=== PATIENT | female | born 1955 | race Caucasian/White ===

== ENCOUNTER 2020-01-23 10:36 | Emergency (ER) | payer BC, SELFPAY ==
[2020-01-23] VITALS (40 sets, daily range): BP systolic 95–129; BP diastolic 48–86; PULSE 55–74; RESP 14–26; TEMP 36.6–36.7; O2SAT 94–99
--- NOTE | 2020-01-23 10:30 | RT.EKG_ITS ---
APPROVED REPORT Exam: Resting ECG Patient Location: E HR:71 bpm ECG Measurements Heart Rate 71 AXIS DC 178 P 43 QRSd 93 QRS 25 QT 375 T 48 QTc 407 Conclusion Sinus rhythm...normal P axis, V-rate 60- [address]/T wave findings.
--- NOTE | 2020-01-23 10:54 | W.ED.GENAD ---
Discharge Plan Disposition Patient Disposition: HOME Condition: Stable Discharge Details Chief Complaint: Chest Pain Clinical Impression: Chest pressure Primary Care Provider: Kenji Singh ED Provider: Rick Pizano Home Meds and New Rx's Prescriptions: Continued atorvastatin 80 mg Tablet 80 mg PO QHS RF: 0 clonazepam 1 mg Tablet 1 mg PO BID PRNRF: 0 famotidine [Pepcid] 20 mg Tablet 20 mg PO BID RF: 0 lithium carbonate 300 mg Capsule 600 mg PO BID RF: 0 aspirin 81 mg Tablet,Chewable 81 mg PO DAILY RF: 0 lisinopril 2.5 mg Tablet 2.5 mg PO DAILY RF: 0 Basaglar KwikPen U-100 Insulin 100 unit/mL (3 mL) Insulin Pen 42 unit SUBCUT QAM RF: 0 multivit with min #[id number] 200 mcg-1,000 mcg-10 mg Capsule 1 cap PO DAILY RF: 0 Discharge Instructions Instructions: Chest Pain (ED) Additional Instructions: At this time your work-up here in the ER was unremarkable for obvious emergent process. As we discussed, I would continue taking the medication prescribed to you yesterday. I would reach out to your primary care provider later today or tomorrow for prompt outpatient reevaluation. Outpatient work-up such as echocardiogram, stress test may be indicated. Otherwise you may need referral to GI or general surgery for further evaluation and procedures such as endoscopy. Please watch for new or worsening symptoms and return to the ER for any concerns. Discharge Data Discharge Date/Time-TO BE ENTERED AT DEPARTURE: 01/23/20 15:04 Medical Decision Making 64-year-old female with history of hyperlipidemia, diabetes, hypertension, anxiety, diagnosed with GERD yesterday presents to the ER currently asymptomatic wanting a second opinion about her month-long symptoms. Symptoms are only present when she lies down before bed and in the morning before getting out of bed. It is a pressure was an occasional sensation or taste in her throat. Denies any true chest pain, radiation of her symptoms, shortness of breath, cough, fever, pain or swelling in her legs. Clinically she appears well, nontoxic and in no acute distress. Her HPI and evaluation certainly seem consistent with GERD however given her age, comorbidities, and symptoms, I do believe initiating a 3-hour cardiac rule out here in the ER is reasonable. Because she is asymptomatic now I will not initiate any medication therapy except for IV normal saline. Given her symptoms are present when she lies down will obtain a BNP but low suspicion for CHF. She has no pain or swelling in her legs, no chest pain, shortness of breath, cough. Will not obtain d-dimer at this time as PE is extremely low suspicion. Initial labs are white blood cell count of 10.0, hemoglobin 13.6 hematocrit 40.1 platelet count 280. Sodium 135 potassium 3.5, creatinine 0.93 with a GFR greater than 60. Glucose 321. Initial troponin is less than 0.05. BNP of 39. Chest x-ray unremarkable. Discussed initial work-up with patient. She is relieved and remains asymptomatic. Repeat troponin is less than 0.05. Repeat EKG performed at 1505, reviewed and interpreted with Dr. Chopra. Please see her official report. Sinus bradycardia. Ventricular rate of 58. No STEMI. Upon reevaluation glucose is trending down nicely. She remains asymptomatic. We discussed her repeat troponin and EKG. Successful rapid cardiac rule out here in the ER. We discussed that I believe taking Pepcid is completely reasonable and stressed the importance of following up with her primary care provider. If symptoms persist she may require referral to cardiology, GI, outpatient endoscopy, echocardiogram, stress test, etc. She was encouraged to contact her primary care provider today or tomorrow for prompt outpatient evaluation, otherwise return to the ER for new or evolving symptoms. Upon discharge patient is asymptomatic and has no additional questions or concerns. Imaging Data Radiologic Study: Attestation: I personally reviewed and interpreted this imaging study as follows: Imaging: X-Ray Radiologist's impression: Chest x-ray read by radiology as negative Lab Data Lab results reviewed: Yes I reviewed the patient's lab results. Lab results narrative: Laboratory Tests Range/Units 01/23/20 01/23/20 01/23/20 10:45 10:45 10:45 WBC (4.4-10.8) 10^3/uL 10.00 RBC (3.93-5.22) 10^6/uL 4.47 Hgb (11.2-15.7) g/dL 13.6 Hct (36.0-46.0) % 40.1 MCV (80-95) fL 89.7 MCH (27.0-33.0) pg 30.4 MCHC (32.0-36.0) % 33.9 RDW (11.7-14.6) % 12.2 Plt Count (130-400) 10^3/uL 280 MPV (8.0-11.0) fL 9.1 Immature Gran % 0.3 Neutrophils % 61.4 Lymphocytes % 29.4 Monocytes % 4.9 Eosinophils % 3.5 Basophils % 0.5 Absolute Neutrophils (1.2-6.7) 10^3/uL 6.14 Absolute Lymphocytes (1.2-3.4) 10^3/uL 2.94 Absolute Monocytes (0.1-0.8) 10^3/uL 0.49 Absolute Eosinophils (0.0-0.7) 10^3/uL 0.35 Absolute Basophils (0.0-0.2) 10^3/uL 0.05 Sodium (136-145) mmol/L 135 L Potassium (3.5-5.1) mmol/L 3.5 Chloride (98-107) mmol/L 100 Carbon Dioxide (21.0-32.0) mmol/L 25.3 Anion Gap (3-11) mmol/L 9.7 BUN (7-18) mg/dL 10 Creatinine (0.55-1.02) mg/dL 0.93 Estimated GFR/1.73 m2 (mL/min/1.73m2) >= 60.00 Glucose (74-106) mg/dL 321 H Calcium (8.5-10.1) mg/dL 9.9 Magnesium (1.8-2.4) mg/dL 1.8 Total Bilirubin (0.2-1.0) mg/dL 0.4 AST (15-37) U/L 21 ALT (14-59) U/L 53 Alkaline Phosphatase (46-116) U/L 131 H Troponin I (<0.06) ng/mL < 0.05 NT-Pro-B Natriuret Pep (<300) pg/mL 39 Total Protein (6.4-8.2) g/dL 7.8 Albumin (3.4-5.0) g/dL 3.8 Range/Units 01/23/20 13:50 WBC (4.4-10.8) 10^3/uL RBC (3.93-5.22) 10^6/uL Hgb (11.2-15.7) g/dL Hct (36.0-46.0) % MCV (80-95) fL MCH (27.0-33.0) pg MCHC (32.0-36.0) % RDW (11.7-14.6) % Plt Count (130-400) 10^3/uL MPV (8.0-11.0) fL Immature Gran % Neutrophils % Lymphocytes % Monocytes % Eosinophils % Basophils % Absolute Neutrophils (1.2-6.7) 10^3/uL Absolute Lymphocytes (1.2-3.4) 10^3/uL Absolute Monocytes (0.1-0.8) 10^3/uL Absolute Eosinophils (0.0-0.7) 10^3/uL Absolute Basophils (0.0-0.2) 10^3/uL Sodium (136-145) mmol/L Potassium (3.5-5.1) mmol/L Chloride (98-107) mmol/L Carbon Dioxide (21.0-32.0) mmol/L Anion Gap (3-11) mmol/L BUN (7-18) mg/dL Creatinine (0.55-1.02) mg/dL Estimated GFR/1.73 m2 (mL/min/1.73m2) Glucose (74-106) mg/dL Calcium (8.5-10.1) mg/dL Magnesium (1.8-2.4) mg/dL Total Bilirubin (0.2-1.0) mg/dL AST (15-37) U/L ALT (14-59) U/L Alkaline Phosphatase (46-116) U/L Troponin I (<0.06) ng/mL < 0.05 NT-Pro-B Natriuret Pep (<300) pg/mL Total Protein (6.4-8.2) g/dL Albumin (3.4-5.0) g/dL ECG Data Attestation: I personally reviewed and interpreted this ECG (s) as follows: Interpretation: EKG performed at 1042, reviewed and interpreted with Dr. Chopra. Sinus rhythm with a ventricular rate of 71. No STEMI. HPI General Mode of arrival: ambulatory. Date/Time Provider Initiated Documentation: 01/23/20 10:38. Limitations to Documentation: no limitations. Information obtained by: patient. HPI Narrative: This is a 64-year-old female with history of hyperlipidemia, diabetes, hypertension, presenting for evaluation of what she describes as chest pressure that is been present nearly daily for the last month. She reports that the only time she has the pressure is right before bedtime when lying down and in the morning before she gets out of bed. Occasionally gets a sensation or sour taste in her throat. Nothing else makes it better or worse. She reports during the day when she was upright she is asymptomatic. She denies recent illness or trauma. Denies any headache, neck pain, chest pain, shortness of breath, cough, abdominal pain, nausea, vomiting, back pain, pain or swelling in her legs, numbness, tingling, weakness. She was seen yesterday in [place], diagnosed with GERD, placed on Pepcid. She is coming to the ER now for second opinion. She is currently asymptomatic. She denies having ever had a stress test or echocardiogram. Related Data Home Medications Medication Instructions Recorded Confirmed Basaglar KwikPen U-100 Insulin 42 unit SUBCUT QAM 01/23/20 01/23/20 aspirin 81 mg PO DAILY 01/23/20 01/23/20 atorvastatin 80 mg PO QHS 01/23/20 01/23/20 clonazepam 1 mg PO BID PRN 01/23/20 01/23/20 famotidine [Pepcid] 20 mg PO BID 01/23/20 01/23/20 lisinopril 2.5 mg PO DAILY 01/23/20 01/23/20 lithium carbonate 600 mg PO BID 01/23/20 01/23/20 multivit with min #[id number] 1 cap PO DAILY 01/23/20 01/23/20 Allergies Allergy/AdvReac Type Severity Reaction Status Date / Time No Known Allergies Allergy Unverified 01/23/20 10:51 General Stated Complaint: Chest Pain DANNI: 3 Review of Systems Constitutional Constitutional: Denies fatigue, Denies fever(s) and Denies weakness Eyes Eyes: Denies change in vision ENT Ears, Nose, Mouth, and Throat: Denies neck pain and Denies sore throat Cardiovascular Cardiovascular: Reports chest pain (Pressure) and Denies dyspnea Respiratory Respiratory: Denies cough and Denies dyspnea Gastrointestinal Gastrointestinal: Denies abdominal pain, Denies nausea and Denies vomiting Genitourinary Genitourinary: Denies dysuria Musculoskeletal Musculoskeletal: Denies back pain, Denies neck pain, Denies numbness and Denies tingling Integumentary/Breasts Skin/Breast: Denies rash Neurologic Neurologic: Denies numbness, Denies tingling and Denies weakness Endocrine Endocrine: Denies fatigue [facility] Social History Smoking/Tobacco Use Status: Former Tobacco Use Alcohol Intake: former Drug use: Never Substance use type: does not use Do you feel safe at home: Yes Do you feel safe in your relationship?: Yes Exam Const General: cooperative, healthy appearing, comfortable and no acute distress Orientation: alert, awake and oriented x3 HENMT Head: normal to inspection, normocephalic and atraumatic Face and sinus: normal facial exam Mouth: moist mucous membranes Throat: posterior oropharynx normal Eyes Conjunctivae: conjunctivae normal Sclera: sclerae normal Neck Neck: normal visual inspection, full ROM, no lymphadenopathy, no meningeal signs, trachea midline, supple and nontender Resp Effort & Inspection: normal respiratory effort and able to speak in complete sentences Auscultation: clear to auscultation bilaterally Cardio Rate: regular rate Rhythm: regular rhythm GI Palpation: soft, not firm, no guarding and nontender Auscultation: normal bowel sounds Back/Spine/Pelvis Back: No back tenderness Skin General skin exam: no rashes or lesions noted Neuro General: patient alert, patient awake, patient oriented x3, moves all extremities and no focal motor deficits Cranial Nerves: CN's II-XI intact bilaterally Cognition: normal cognition Speech: speech normal Gait: normal gait Motor: muscle tone normal throughout and strength 5/5 throughout Sensory Exam: no sensory deficits noted Extrem General: normal to inspection, full ROM and capillary refill normal Psych Appearance: grossly normal Mental Status: mental status grossly normal Course Vital Signs Vital signs: Vital Signs Temperature 36.7 C 01/23/20 10:38 Pulse 74 01/23/20 10:38 Pulse Oximetry 99 01/23/20 10:38 Temperature 36.7 C 01/23/20 10:38 Temperature Source Temporal Artery Scan 01/23/20 10:38 Pulse 74 01/23/20 10:38 Respiratory Rate 25 H 01/23/20 10:49 Respiratory Effort Non-Labored 01/23/20 10:49 Respiratory Depth Normal 01/23/20 10:49 Respiratory Pattern Normal 01/23/20 10:49 Blood Pressure Position Sitting 01/23/20 10:38 Pulse Oximetry 99 01/23/20 10:38 Oxygen Delivery Method Room Air 01/23/20 10:38 Oxygen Flow Rate 0 01/23/20 10:38 Pain Level 1 01/23/20 10:49
[2020-01-23 11:10] LABS: Abs Immature Grans 0.03 10^3/uL (0.0-0.06); Absolute Basophil Count 0.05 10^3/uL (0.0-0.2); Absolute Eosinophil Count 0.35 10^3/uL (0.0-0.7); Absolute Lymphocyte Count 2.94 10^3/uL (1.2-3.4); Absolute Monocyte Count 0.49 10^3/uL (0.1-0.8); Absolute Neutrophil Count 6.14 10^3/uL (1.2-6.7); Basophils % 0.5; Eosinophils % 3.5; HCT 40.1 % (36.0-46.0); HGB 13.6 g/dL (11.2-15.7); Immature Grans % 0.3; Lymphocytes % 29.4; MCH 30.4 pg (27.0-33.0); MCHC 33.9 % (32.0-36.0); MCV 89.7 fL (80-95); MPV 9.1 fL (8.0-11.0); Monocytes % 4.9; Neutrophils % 61.4; Nucleated RBC 0 %; Platelet Count 280 10^3/uL (130-400); RBC 4.47 10^6/uL (3.93-5.22); RDW 12.2 % (11.7-14.6); RDW-SD 40.3 fL
[2020-01-23 11:25] LABS: ALT 53 U/L (14-59); AST 21 U/L (15-37); Albumin 3.8 g/dL (3.4-5.0); Alkaline Phosphatase 131 U/L (46-116); Anion Gap 9.7 mmol/L (3-11); BUN 10 mg/dL (7-18); Bilirubin, Total 0.4 mg/dL (0.2-1.0); CO2 25.3 mmol/L (21.0-32.0); CREATININE 0.93 mg/dL (0.55-1.02); Calcium 9.9 mg/dL (8.5-10.1); Chloride 100 mmol/L (98-107); Glucose 321 mg/dL (74-106); Magnesium 1.8 mg/dL (1.8-2.4); Potassium 3.5 mmol/L (3.5-5.1); Sodium 135 mmol/L (136-145); Total Protein 7.8 g/dL (6.4-8.2); Troponin I < 0.05 ng/mL (<0.06)
[2020-01-23] MEDS: Normal Saline Flush 10 ML SYR IVP (11:55)
[2020-01-23] MEDS: Normal Saline 1,000 ML 1000 ML IV (11:55)
--- NOTE | 2020-01-23 12:00 | DI.RAD_ITS ---
EXAM: XR CHEST 2V PA LATERAL CLINICAL HISTORY: chest pain TECHNIQUE: 2D digital imaging was performed. COMPARISON: No exams were available for comparison FINDINGS: The heart is not enlarged. The lungs are clear and well expanded. No pleural effusion seen. Mediastin al contours appear intact. IMPRESSION: Normal chest
[2020-01-23 12:10] LABS: NT-proBNP 39 pg/mL (<300)
--- NOTE | 2020-01-23 13:45 | RT.EKG_ITS ---
APPROVED REPORT Exam: Resting ECG Patient Location: E HR:58 bpm ECG Measurements Heart Rate 58 AXIS MT 208 P 56 QRSd 98 QRS 21 QT 425 T 57 QTc 419 Conclusion Sinus bradycardia...rate< 60 Low voltage, precordial leads...precordial leads <1.0mV. No acute ST elevation or depression.
[2020-01-23 14:22] LABS: Troponin I < 0.05 ng/mL (<0.06)
== END 2020-01-23 15:04 | disposition home or self-care (01) ==
PROVIDERS: Emergency Provider Physician Assistant; PCP Family Medicine
DX: R07.89 Other chest pain (principal); K21.9 Gastro-esophageal reflux disease without esophagitis; I10 Essential (primary) hypertension; E11.9 Type 2 diabetes mellitus without complications; Z79.4 Long term (current) use of insulin
CPT/HCPCS: 36415; 36416; 80053; 82962; 93005; 96360; 99285; 71046; 83735; 83880; 84484; 85025; 93010; 99284